=== PATIENT | female | born 1995 | race Caucasian/White ===

== ENCOUNTER → 2020-07-30 14:23 | Outpatient (BNVA) | payer OTHER, SELFPAY | PROVIDERS: Visit Provider Obstetrics & Gynecology | DX: Z34.90 Encounter for supervision of normal pregnancy, unspecified, unspecified trimester (principal) | CPT/HCPCS: 80053; 80307; 84315; 85027; 86592; 86762; 86803; 86850; 86900; 87340; 87806 ==

== ENCOUNTER → 2020-08-16 13:17 | Outpatient (BNVA) | payer OTHER, SELFPAY | PROVIDERS: Visit Provider Obstetrics & Gynecology | DX: Z34.81 Encounter for supervision of other normal pregnancy, first trimester (principal) | CPT/HCPCS: 84315; 87491; 87591 ==

== ENCOUNTER 2020-09-13 10:08 | Outpatient (CLI) | payer OTHER, SELFPAY ==
--- NOTE | 2020-09-13 10:18 | USCV_ITS ---
Arely Og Age: 25 Gender: F : 1995 Exam Date: 09/13/2020 11:09 Ordering Phys: Mary Pace MD ([email or web address]) Technologist: Graciela Pitts Exam Location: [facility] [place] Indication: BUBBLE STUDY CARDIOMEGALY BP: 118 / 63 HR: 85 Rhythm: Sinus Technical Quality: Adequate MEASUREMENTS (Male / Female) Normal Values 2D ECHO LV Chamber Size 4.4 cm RV Chamber Size 2.5 cm LVOT Diameter 2.0 cm LV Ejection Fraction MOD 2C 71.2 % LV Ejection Fraction 2C AL 69.0 % LA Diameter 4.0 cm LA Width 3.2 cm LA Height 4.2 cm RA Width 3.7 cm RA Height 4.3 cm Aorta at Sinotubular Diameter 2.6 cm M-MODE LV Diastolic Diameter MM 4.6 cm 4.2 - 5.9 / 3.9 - 5.3 cm LV Systolic Diameter MM 2.8 cm LV Ejection Fraction MM Teich 70.6 % IVS Diastolic Thickness MM 1.0 cm 0.6 - 1.0 / 0.6 - 0.9 cm IVS Systolic Thickness MM 1.4 cm LVPW Diastolic Thickness MM 1.1 cm 0.6 - 1.0 / 0.6 - 0.9 cm LVPW Systolic Thickness MM 1.5 cm RV Diastolic Diameter MM 3.0 cm Aortic Annulus Diameter 3.0 cm LA Ao Ratio MM 1.4 MV E Point Septal Separation 0.6 cm DOPPLER AV Peak Velocity 117.0 cm/s LVOT Peak Velocity 78.0 cm/s AV Area Cont Eq vti 2.2 cm squared AV Area Cont Eq pk 2.1 cm squared MV Area PHT 4.3 cm squared Mitral E to A Ratio 1.3 MV E' Velocity 53.0 cm/s Mitral E to MV E' Ratio 6.0 Mitral E to LV E' Lateral Ratio 5.6 Mitral E to LV E' Septal Ratio 6.6 TR Peak Velocity 205.0 cm/s TR Peak Gradient 16.8 mmHg TR Mean Velocity 150.4 cm/s TR Mean Gradient 10.2 mmHg TR Velocity Time Integral 59.2 cm TV Peak E Velocity 75.0 cm/s Right Atrial Pressure 3.0 mmHg Pulmonary Artery Systolic Pressu 19.8 mmHg PV Peak Velocity 82.0 cm/s RV Acceleration Time 0.2 s RV Ejection Time 0.4 s RV AcT/ET 0.5 FINDINGS Left Ventricle Normal left ventricular size, systolic function and wall thickness, with no regional wall motion abnormalities. Left ventricular ejection fraction is estimated at 60 %. Normal diastolic function. Right Ventricle Normal right ventricular size and systolic function, RVSP 21 mmHg. Right Atrium Normal right atrial size. Right atrial pressure estimated at 3 mmHg. Aneurysmal interatrial septum. No evidence of intracardiac shunt by bubble study. Left Atrium Upper normal left atrial size. Mitral Valve There is bowing of bilateral mitral valve leaflets without any significant prolapse. No mitral valve stenosis. Trace mitral valve regurgitation. Aortic Valve Structurally normal trileaflet aortic valve. No aortic valve stenosis. No aortic valve regurgitation. Tricuspid Valve Structurally normal tricuspid valve. No tricuspid valve stenosis. Trace tricuspid valve regurgitation. Pulmonic Valve Structurally normal pulmonic valve. No pulmonary valve stenosis. Trace pulmonary valve regurgitation. Pericardium No pericardial effusion. Aorta Normal size aortic root and proximal ascending aorta. Normal- sized inferior vena cava. CONCLUSIONS 1. Normal left ventricular size, systolic function and wall thickness, with no regional wall motion abnormalities. Left ventricular ejection fraction is estimated at 60 %. Normal diastolic function. 2. Aneurysmal interatrial septum. No evidence of intracardiac shunt by bubble study. 3. Normal pulmonary artery pressure. 4. No significant valvular abnormality. 5. No prior similar studies to compare. Mary Pace MD (Electronically Signed) Final Date: 14 September 2020 11:24 S
== END 2020-09-13 10:09 | disposition home or self-care (01) ==
LOC: RAD 10:15
PROVIDERS: PCP Obstetrics & Gynecology; Visit Provider Internal Medicine Cardiovascular Disease
DX: I51.7 Cardiomegaly (principal); Q21.1 Atrial septal defect
CPT/HCPCS: 84315; C8929

== ENCOUNTER → 2020-10-12 14:43 | Outpatient (BNVA) | payer OTHER, SELFPAY | PROVIDERS: PCP Obstetrics & Gynecology; Visit Provider Obstetrics & Gynecology | DX: O32.1XX0 Maternal care for breech presentation, not applicable or unspecified (principal); Z3A.20 20 weeks gestation of pregnancy | CPT/HCPCS: 76805 ==

== ENCOUNTER → 2020-12-03 14:25 | Outpatient (BNVA) | payer OTHER, SELFPAY | PROVIDERS: PCP Obstetrics & Gynecology; Visit Provider Obstetrics & Gynecology | DX: Z34.82 Encounter for supervision of other normal pregnancy, second trimester (principal) | CPT/HCPCS: 82950; 84315; 85027 ==

== ENCOUNTER → 2020-12-20 14:25 | Outpatient (BNVA) | payer OTHER, SELFPAY | PROVIDERS: PCP Obstetrics & Gynecology; Visit Provider Obstetrics & Gynecology | DX: Z34.82 Encounter for supervision of other normal pregnancy, second trimester (principal); Z79.899 Other long term (current) drug therapy | CPT/HCPCS: 84315; 84443 ==

== ENCOUNTER → 2021-01-28 15:40 | Outpatient (BNVA) | payer OTHER, SELFPAY | PROVIDERS: PCP Obstetrics & Gynecology; Visit Provider Obstetrics & Gynecology | DX: O99.412 Diseases of the circulatory system complicating pregnancy, second trimester (principal); I47.2 Ventricular tachycardia; I49.9 Cardiac arrhythmia, unspecified; I25.3 Aneurysm of heart | CPT/HCPCS: 84315; 87081 ==

== ENCOUNTER 2021-02-10 18:14 | Outpatient (CLI) | payer OTHER, SELFPAY ==
[2021-02-10 18:40] VITALS: BP 129/85; PULSE 84
[2021-02-10 19:00] VITALS: BP 113/63; PULSE 75
[2021-02-10 19:14] VITALS: BP 112/65; PULSE 87; TEMP 36.2
== END 2021-02-10 19:30 | disposition home or self-care (01) ==
LOC: OPOB 18:28 → OBGYN 18:30
PROVIDERS: PCP Obstetrics & Gynecology; Visit Provider Obstetrics & Gynecology
DX: O26.899 Other specified pregnancy related conditions, unspecified trimester (principal); Z3A.00 Weeks of gestation of pregnancy not specified; R10.9 Unspecified abdominal pain
CPT/HCPCS: 59025; 99211

== ENCOUNTER 2021-02-13 01:34 | Outpatient (CLI) | payer OTHER, SELFPAY ==
[2021-02-13] VITALS (10 sets, daily range): BP systolic 125; BP diastolic 70; PULSE 78–96; RESP 17–18; TEMP 36.8; O2SAT 97–100; BMI 35.2
[2021-02-13 04:48] LABS: Nitrazine Paper, PH Negative
== END 2021-02-13 02:35 | disposition home or self-care (01) ==
LOC: OPOB 01:35 → OBGYN 01:37
PROVIDERS: PCP Obstetrics & Gynecology; Visit Provider Obstetrics & Gynecology
DX: O26.899 Other specified pregnancy related conditions, unspecified trimester (principal); Z3A.00 Weeks of gestation of pregnancy not specified; N89.8 Other specified noninflammatory disorders of vagina
CPT/HCPCS: 59025; 83986; 99211

== ENCOUNTER 2021-02-17 02:06 | Inpatient (IN) | payer OTHER, SELFPAY ==
[2021-02-17] VITALS (94 sets, daily range): BP systolic 88–144; BP diastolic 17–76; PULSE 54–100; RESP 14–20; TEMP 36.2–36.8; O2SAT 93–100; BMI 35.3
[2021-02-17 02:07] LABS: Basophils % 0.2 %; Eosinophils # 0.1 10^3/uL (0.0-0.8); Eosinophils % 0.5 %; Hematocrit 39.1 % (37.0-47.0); Hemoglobin 13.6 g/dL (11.5-15.3); Lymphocytes # 2.4 10^3/uL (0.8-4.8); Lymphocytes % 18.8 %; Mean Corpuscular HGB Conc 34.8 g/dL (30.0-36.0); Mean Corpuscular Hemoglobin 29.6 pg (28.0-34.0); Mean Corpuscular Volume 85.2 fL (81-99); Mean Platelet Volume 9.3 fL (7.4-10.4); Monocytes # 0.9 10^3/uL (0.2-0.9); Neutrophils # 9.23 10^3/uL (1.8-7.7); Neutrophils % 72.9 %; Nucleated Red Blood Cells % 0 %; Platelet Count 206 10^3/cmm (130-400); Red Blood Count 4.59 10^6/uL (4.1-5.3); Red Cell Distribution Width 13.6 % (12.1-15.1); White Blood Count 12.7 10^3/uL (4.0-10.0)
[2021-02-17] MEDS: lactated ringers 1,000 ML 999 ML IV (02:10)
--- NOTE | 2021-02-17 03:15 | P.ANESASSM_ITS ---
Pre-Anesthetic Assessment Pre-Anesthetic Assessment: Height/Weight: Height 1.68 m Weight 99.337 kg Temp Pulse Resp BP Pulse Ox 98.1 F 88 17 128/61 93 02/17/21 02:22 02/17/21 02:58 02/17/21 01:52 02/17/21 02:58 02/17/21 02:21 Preop Diagnosis: labor pains Proposed Procedure: epidural Was Beta Jaguar taken within 24 hours: Yes Social: Social History: No alcohol and No tobacco Exam: Pre-Anes Outpt Exam: alert, oriented x 3, clear to auscultation bilaterally and regular rate & rhythm Airway: Submandibular: WNL Cervical ROM: WNL MP: 2 Dentition: Full Pulmonary: Pulmonary: Asthma (inhaler as needed) CV/HEM: CV/HEM: Arrythmia (had cardiac work up with SVT noted on monitor du ring study) : : None reported Hepatic: Hepatic: None reported GI: GI: GERD Metabolic: Metabolic: None reported Musc/skel: Musc/skel: None reported Neuropsych: Neuropsych: ESPINO Anesthetic Plan: ASA status: 2 Anesthesia: Regional (specify below) Risk of > 500 ml blood loss (7ml/kg in children): No Meds/Allergies Current Medications: Current Medications Generic Name Dose Route Start Last Admin Trade Name Freq PRN Reason Stop Dose Admin Lactated Ringer's 1,000 mls @ 999 m ls/hr 02/17/21 01:50 02/17/21 02:10 Lactated Ringers IV 999 mls/hr .Q1H1M PRN Administration See label comment s PFSH Anesthesia PFSH: Medical History Asthma History of anemia NSVT (nonsustained ventricular tachycardia) Right heart enlargement (~2019) dx after delivery of her child in 2019--saw Cardio [facility] History Hx of tooth extraction 5 teeth Family History Mother Thyroid disease Social History Smoking and tobacco status: never smoked Alcohol intake: former Former alcohol use details: socially prior to Female Reproductive History: : 2 Data Anesthesia CBC & Chem 7: 02/17/21 02:00 Other Labs: Laboratory Results - last 48 hr 02/17/21 02:00 WBC 12.7 H RBC 4.59 Hgb 13.6 Hct 39.1 MCV 85.2 MCH 29.6 MCHC 34.8 RDW 13.6 Plt Count 206 MPV 9.3 Neut % (Auto) 72.9 Lymph % (Auto) 18.8 [place] % (Auto) 7.0 Eos % (Auto) 0.5 Baso % (Auto) 0.2 Neut # (Auto) 9.23 H Lymph # (Auto) 2.4 [place] # (Auto) 0.9 Eos # (Auto) 0.1 Baso # (Auto) 0.0 Nucleated RBC % (auto) 0 Nucleated RBCs # 0.0 Cardiac Studies: Echocardiogram 09/13/20 Cardiac Event Monitor 08/18/20
[2021-02-17] MEDS: dextrose 5%-lactated ringers 1,000 ML 999 ML IV (03:42)
--- NOTE | 2021-02-17 03:52 | ANES.PROC ---
Anesthesia Procedures Procedure/Date: 02/17/21 epidural Procedure Narrative: epidural complete, bolus given, epidural pump initiated with TECHNICAL SUPPORT 1 SOFTWARE ENGINEER education given, vitals taken during procedure using OBIX system and satisfactory throughout, patient admits to decrease pain, report of procedure to OB RN Epidural: Time Out Performed: Yes Consents Signed: Procedure Consent Consent: requested by attending/covering physician, from patient, risks and benefits reviewed and patient agrees to proceed Lumbar Level: L3-L4 Epidural position: sitting Epidural procedure: sterile prep of area, 1% lidocaine to numb the area (3 mL), 18 g needle, negative for paresthesia passed, neg for paresthesia, test dose given, 1.5% xylocaine 1:200k epi (5 mL), 0.2% Ropivacaine bolus ml (5 mL), placed PCEA, no systemic response, sterile dressing applied, L.U.D. no apparent complications and 0.2% Ropiavacaine @ mls/hr (13 mL/hr)
[2021-02-17] MEDS: oxytocin 30 UNIT/500 ML BAG IV (09:27)
[2021-02-17] MEDS: dextrose 5%-lactated ringers 1,000 ML 125 ML IV (09:27)
--- NOTE | 2021-02-17 12:52 | PM.PN ---
Subjective Subjective: Interval history: Mrs. Og, 1, Para 1-0-0-1 with an LMP of 05/20/2020 and an EDDIE of 02/24/2021 based on LMP and consistent with 20-week ultrasound, which places her at 39 weeks today. Came to L&D in active labor. Vitals/I&O/Wt Last Vital Signs Temp 97.9 F 02/17/21 11:49 Pulse 68 02/17/21 12:36 Resp 17 02/17/21 01:52 BP 108/58 02/17/21 12:36 Pulse Ox 100 02/17/21 03:33 02/16/21 02/17/21 02/17/21 22:59 06:59 14:59 Intake Total 1249.75 / 1249.75 790.4 / 790.4 Balance 1249.75 / 1249.75 790.4 / 790.4 Weight last 48 hrs Weight 99.337 kg Physical Exam Narrative: EXAM NARRATIVE: GA: Alert and oriented ?3. Lungs: Clear to auscultation bilaterally. Heart: Regular rhythm and rate. Abdomen: Gravid, full the height equals dates, nontender. TANK ASSEMBLER: SVE; dilation: 6 cm, effacement: 90%, station: 0, presentation: VX, membranes: _. Extremities: no edema, no cyanosis, no calves pain. heart tracing: Basal rate: 140 bpm, Variability: Moderate, Accelerations: Present, Decelerations: absent, Contraction: Every 2 minutes. Urinary Catheter Management^: Sears Latex: Cath Placed During This Visit: yes Reason for Continuing Indwelling Catheter: Required Immobilization for Trauma or Surgery or Anesthesia Urinary Catheter Date of Insertion: 02/17/21 Urinary Catheter Time of Insertion: 04:00 Data : 02/17/21 02:00 A&P Assessment and plan (1) Term : Mrs. Og EGA at term in active leabor, epifural in place. heart tracing cat 1. scalp stimulation present. Anticipate vaginal. Continue with continuous monitoring. Status: Acute (2) Maternal arrhythmia complicating in second trimester: Status: Acute Attestations Medical Necessity Statement*: My professional opinion per admitting diagnosis Coding Level of Care Code Acute Internal Communications Specialist for [facility] Fwd Diagnoses Term Z34.90 Maternal arrhythmia complicating in second trimester O99.412; I49.9
--- NOTE | 2021-02-17 14:35 | P.PCNOB_ITS ---
Delivery Note: Date of delivery: February 17, 2021 Op report anesthesia: Epidural Delivering Physician: Christiano Hays MD Estimated blood loss (mL): 300 Findings: Term female , Apgars 8 and 9, weight 3040 g Pre-Delivery Course: Mrs. Og 25 year old, 2, Para 1-0-0-1 with an LMP of 05/20/2020 and an EDDIE of 02/24/2021 based on LMP and consistent with 20- week ultrasound, which places her at 39 weeks today CC: Onset of labor at term. HPI: Received appropriate care. Daily vitamins since two months prior to conception. labs have all been normal, including negative for HIV. She was found to negative for Group B Strep from screening at 36 weeks. She has gained approximately 13 kg throughout the . She denies a history of HTN during . Glucose tolerance screening for gestational diabetes was negative. She desires permanent sterilization, but she does not have a COVID test. She will proceed with sterilization at after visit. Delivery: The patient was noted to be complete and pushing, so was placed in the dorsal lithotomy position, prepped and draped in the usual sterile fashion for a vaginal delivery. Pt. Noted to have epidural anesthesia. At 1329 the patient delivered a viable female at term weighing 3040 g with scores of 8 and 9 at one and five minutes, respectively. The vertex was delivered spontaneously over an intact perineum. The patient was asked to push and the head delivered spontaneously in the WONG position, over an intact perineum. A nuchal cord was checked and none noted. The anterior shoulder delivered easily and the posterior shoulder followed. The remainder of the infant was easily delivered and the oropharynx and nasopharynx was bulb suctioned. The was noted to have spontaneous cry and spontaneous movement of all four extremities. The cord was clamped x 2 and cut and noted to have 2 arteries and one vein. The infant was passed to the mother's abdomen where nursing personnel were in attendance. Cord blood sample was then obtained. The placenta delivered intact spontaneously and the uterus was explored. 20 units of Pitocin was placed in the IV bag to firm the uterus. Examination of the cervix and vaginal vault did not reveal any lacerations. A vaginal pack was then placed. Examination of the perineum showed no lacerations. The vaginal pack was then removed. The patient tolerated this procedure well, and recovered in L&D with her infant in their LDR room. All sponge and needle counts were correct. A&P Assessment and plan (1) Term : Status: Acute (2) Maternal arrhythmia complicating in second trimester: Status: Acute Coding Level of Care Code Acute Test Engine Operator for [place] Fwd Diagnoses Term Z34.90 Maternal arrhythmia complicating in second trimester O99.412; I49.9
[2021-02-17] MEDS: oxytocin 30 UNIT/500 ML BAG 999 UNIT IV (15:11)
[2021-02-17] MEDS: ibuprofen 800 mg tablet PO ×2 (15:12→21:15)
[2021-02-17] MEDS: lanolin oint 7 gm 1 APPLIC TOPICAL (17:58)
[2021-02-17] MEDS: docusate sodium 100 mg Capsule PO (17:59)
[2021-02-18 00:10] VITALS: BP 110/64; PULSE 63; RESP 15; TEMP 36.4
[2021-02-18 02:38] LABS: Hematocrit 34.5 % (37.0-47.0); Hemoglobin 11.4 g/dL (11.5-15.3); Mean Corpuscular Hemoglobin 29.2 pg (28.0-34.0); Mean Corpuscular Volume 88.2 fL (81-99); Mean Platelet Volume 9.6 fL (7.4-10.4); Platelet Count 172 10^3/cmm (130-400); Red Blood Count 3.91 10^6/uL (4.1-5.3); Red Cell Distribution Width 14.1 % (12.1-15.1); White Blood Count 10.4 10^3/uL (4.0-10.0)
[2021-02-18 04:28] VITALS: BP 113/71; PULSE 77; RESP 15
[2021-02-18 10:00] VITALS: BP 117/70; PULSE 72; RESP 16; TEMP 37.1; O2SAT 99
[2021-02-18] MEDS: docusate sodium 100 mg Capsule PO (10:14)
[2021-02-18] MEDS: prenatal vitamin Capsule 1 CAP PO (10:14)
[2021-02-18] MEDS: ibuprofen 800 mg tablet PO (10:14)
--- NOTE | 2021-02-18 15:23 | PM.OBGYDC ---
Discharge Providers FINANCIAL COMPLIANCE EXAMINER Date of Admission: 02/17/21 02:06 Date of Discharge: 02/18/21 Attending Provider at Admission: Christiano Hays MD Attending Provider at Discharge: Christiano Hays MD Primary Care Provider: Leo Lloyd MD Diagnoses at Discharge Discharge Diagnosis (1) Term : Status: Acute (2) Maternal arrhythmia complicating in second trimester: Status: Acute Reason for Visit Reason for Visit: contractions Hospital Course Hospital Course Mrs. Og 25 year old, 2, Para 1-0-0-1 with an LMP of 05/20/2020 and an EDDIE of 02/24/2021 based on LMP and consistent with 20-week ultrasound, which places her at 39 weeks today CC: Onset of labor at term. HPI: Received appropriate care. Daily vitamins since two months prior to conception. labs have all been normal, including negative for HIV. She was found to negative for Group B Strep from screening at 36 weeks. She has gained approximately 13 kg throughout the . She denies a history of HTN during . Glucose tolerance screening for gestational diabetes was negative. She desires permanent sterilization, but she does not have a COVID test. She will proceed with sterilization at after visit. She progressed to have a spontaneous vaginal delivery without complications. observation was uneventful. Information Peripartum Data: Infant Delivery Method: Vaginal Physical Exam Narrative: EXAM NARRATIVE: GA; alert and oriented x 3 HEENT: normal Breasts: engorged Nipples - skin intact Lungs; clear to auscultation Heart: regular rhythm, no murmurs. Abd: Appropriately tender. BS+. Uterine fundus below umbilicus. No Fundal Tenderness. Perineum: normal lochia. Extremities: no edema, no cyanosis, no tenderness. Urinary Catheter Management^: Sears Latex: Cath Placed During This Visit: yes, but has since been removed by the nurse Reason for Continuing Indwelling Catheter: Other Urinary Catheter Date of Insertion: 02/17/21 Urinary Catheter Time of Insertion: 04:00 Date Urinary Catheter Removed: 02/17/21 Time Urinary Catheter Discontinued: 14:27 Discharge Data Data Completed and Pending: Labs from last 24 hours 02/18/21 02:30 WBC 10.4 H RBC 3.91 L Hgb 11.4 L Hct 34.5 L MCV 88.2 MCH 29.2 MCHC 33.0 RDW 14.1 Plt Count 172 MPV 9.6 Vitals: Last Vital Signs Temp 97.6 F 02/18/21 00:10 Pulse 77 02/18/21 04:28 Resp 15 02/18/21 04:28 BP 113/71 02/18/21 04:28 Pulse Ox 100 02/17/21 03:33 Discharge Plan Discharge Patient Disposition: Home Condition: Stable Prescriptions: New ibuprofen 800 mg tablet 800 mg PO TID PRN (Reason: pain) Qty: 60 RF: 0 Iron (ferrous sulfate) 325 mg (65 mg iron) tablet 325 mg PO BID Qty: 60 RF: 0 acetaminophen 325 mg capsule 325 mg PO Q4H PRN (Reason: fever or pain) Qty: 60 RF: 0 Continued metoprolol succinate 50 mg tablet extended release 24 hr 50 mg PO DAILY Qty: 30 RF: 0 [id number] 1 mg Tablet 1 tab PO DAILY RF: 0 Discharge Orders: Discharge Order (Routine); Ordered 02/18/21 Ordered By: Christiano Hays Referrals: Christiano Hays MD [Physician] - 04/01/21 9:15 am (Your 6 week visit is scheduled for 04/01/2021 at 9:15 am) Discharge Diet: Usual diet Discharge Activity: Increase activity as tolerated Patient Instructions: Depression (GEN), Pre-eclampsia and Eclampsia (DC), Bleeding (DC), OB Discharge Report, OB Food/Drug Interaction Guide, Opioid Safety, OB Home Care, OB Proud Parent Packet, OB Vaginal Deliveries - [facility] Activity Restrictions/Additional Instructions: 1. Please call [facility] [place] Women s Health Care clinic on next working day to make your appointment in 6 weeks. 2. Please stay home until you come back to the clinic on first post-operative check up. 3. Please follow instructions on your medications CAREFULLY. 4. If you have abdominal incision, do not cover it unless dressing is necessary because of drainage. OK to shower, but avoid bath. Leave steri-strips until they fall off. If they are still on one week after surgery, you may remove them. 5. If you had vaginal surgery or vaginal repair, Dr. Hays may instruct you to take SITZ bath. 6. Yellow, blood tinged odorous vaginal discharge is usually normal after hysterectomy or vaginal surgeries. 7. No sexual intercourse, tampons, or douches until you are completely released from the post-operative care. 8. Avoid constipation by eating right and maybe using some Metamucil or Milk of Magnesia. 9. All prescription refills are given during the working hours. Please do no wait till it runs out. Call the clinic at [phone] before your medication runs out. The clinic will get in touch with your doctor to prescribe medications if necessary. 10. Please remain within 40 mile radius from our hospital because emergencies do happen now and then during the post-operative period. 11. If you have stairs at home, take one step at a time slowly and minimize the number of trips. It helps to stay in one floor for the next few days. No lifting except what you can lift by one hand until you are released from the post-operative care. 12. Driving is discouraged until you are well healed. It may be 3-4 weeks before you feel strong enough to drive. You should be able to turn and look through the rear window without pain and you should be able to push the brake pedal very hard without pain before you drive. No fast rules, but SAFETY should be your primary concern. DO NOT drive if you are on sedating medications such as narcotics. 13. Call the clinic (during working hours) to make urgent appointment or go to the Emergency room, if any of the following occurs: i. Vaginal bleeding becomes heavy, more than a period. ii. Incision becomes red and sore, or drains pus. iii. Your temperature is over 100.4 or you have chill. iv. IV site becomes red and swollen (a little ``knot?? is usually OK) v. Persistent nausea and vomiting vi. Persistent constipation or diarrhea vii. Rash or allergic reaction to medications. Discharge Attestations FINANCIAL COMPLIANCE EXAMINER Time Spent in Discharge Care*: greater than 30 min Coding Level of Care Code Acute Batch Unloader for [facility] Fwd Diagnoses Term Z34.90 Maternal arrhythmia complicating in second trimester O99.412; I49.9
[2021-02-18 16:15] VITALS: BP 119/74; PULSE 59; RESP 19; TEMP 36.5; O2SAT 99
[2021-02-18 16:44] VITALS: BP 119/74; PULSE 59; RESP 19; TEMP 36.5; O2SAT 99
== END 2021-02-18 16:28 | disposition home or self-care (01) | DRG 806 ==
LOC: OPOB 02:06 → OBGYN 02:06
PROVIDERS: Admitting Provider Obstetrics & Gynecology; PCP Obstetrics & Gynecology; Visit Provider Obstetrics & Gynecology
DX: O99.42 Diseases of the circulatory system complicating childbirth (principal); I47.1 Supraventricular tachycardia; Z37.0 Single live birth; I25.3 Aneurysm of heart; Z3A.39 39 weeks gestation of pregnancy
CPT/HCPCS: 36415; 51702; 59025; 59409; 85025; 85027; 86850; 86900; 98960; 99211; J2795

== ENCOUNTER → 2021-05-05 14:15 | Outpatient (BNVA) | payer OTHER, SELFPAY | PROVIDERS: PCP Obstetrics & Gynecology; Visit Provider Obstetrics & Gynecology | DX: Z30.2 Encounter for sterilization (principal); Z20.822 Contact with and (suspected) exposure to COVID-19 | CPT/HCPCS: 87635 ==

== ENCOUNTER → 2021-05-11 11:13 | Day surgery (SDC) | payer OTHER, SELFPAY ==
[2021-05-09 12:49] VITALS: BMI 33.9
[2021-05-09 13:20] LABS: Add Urine Microscopic? NO; Charge for UA Resulting for Rev
[2021-05-09 13:27] LABS: Basophils % 0.5 %; Eosinophils # 0.1 10^3/uL (0.0-0.8); Eosinophils % 1.2 %; Hematocrit 42.1 % (37.0-47.0); Lymphocytes # 1.9 10^3/uL (0.8-4.8); Mean Corpuscular HGB Conc 33.3 g/dL (30.0-36.0); Mean Corpuscular Hemoglobin 29.2 pg (28.0-34.0); Mean Corpuscular Volume 87.9 fl (81-99); Mean Platelet Volume 9.9 fL (7.4-10.4); Monocytes # 0.4 10^3/uL (0.2-0.9); Monocytes % 7.3 %; Neutrophils % 58.7 %; Nucleated Red Blood Cells % 0 %; Platelet Count 267 10^3/cmm (130-400); Red Blood Count 4.79 10^6/uL (4.1-5.3); Red Cell Distribution Width 13.7 % (12.1-15.1); White Blood Count 5.8 10^3/uL (4.0-10.0)
--- NOTE | 2021-05-09 13:40 | P.ANESASSM_ITS ---
Pre-Anesthetic Assessment Pre-Anesthetic Assessment: Height/Weight: Height 1.68 m Weight 95.254 kg Preop Diagnosis: labor pains Proposed Procedure: Operation Date: 05/11/21 13:40 Proposed Procedures p Laparoscopic bilateral Tubal Fulguration 56500 z30.2(Bilateral) - Christiano Hays MD s Salpingectomy(Not Applicable) - Christiano Hays MD Was Beta Jaguar taken within 24 hours: Yes Was Clonidine taken within 24 hours: N/A Social: Social History: No alcohol and No tobacco Exam: Pre-Anes Outpt Exam: alert, oriented x 3, clear to auscultation bilaterally and regular rate & rhythm Airway: Submandibular: WNL Cervical ROM: WNL MP: 2 Dentition: Full History/ROS: No significant history except as noted Pulmonary: Pulmonary: Asthma CV/HEM: CV/HEM: Anemia and Arrythmia Comments: atrial septal aneurysm Anesthetic Plan: ASA status: 2 Anesthesia: General Risk of > 500 ml blood loss (7ml/kg in children): No PFSH Anesthesia PFSH: Medical History Asthma History of anemia NSVT (nonsustained ventricular tachycardia) Request for sterilization Right heart enlargement (~2019) dx after delivery of her child in 2019--saw Cardio [place] Surgical History Hx of tooth extraction 5 teeth Family History Mother Thyroid disease Social History Smoking and tobacco status: never smoked Alcohol intake: former Former alcohol use details: socially prior to Data Anesthesia CBC & Chem 7: 05/09/21 13:00 05/09/21 13:00 Other Labs: Laboratory Results - last 48 hr 05/09/21 13:00 WBC 5.8 RBC 4.79 Hgb 14.0 Hct 42.1 MCV 87.9 MCH 29.2 MCHC 33.3 RDW 13.7 Plt Count 267 MPV 9.9 Neut % (Auto) 58.7 Lymph % (Auto) 32.0 [place] % (Auto) 7.3 Eos % (Auto) 1.2 Baso % (Auto) 0.5 Neut # (Auto) 3.40 Lymph # (Auto) 1.9 [place] # (Auto) 0.4 Eos # (Auto) 0.1 Baso # (Auto) 0.0 Nucleated RBC % (auto) 0 Nucleated RBCs # 0.0 Cardiac Studies: Echocardiogram 09/13/20 Cardiac Event Monitor 08/18/20
[2021-05-09 13:53] LABS: Blood Urea Nitrogen 10 mg/dL (6-20); Calcium 8.5 mg/dL (8.5-10.5); Carbon Dioxide 23 mmol/L (22-29); Chloride 103 mmol/L (98-107); Glomerular Filtration Rate 119.9 mL/min (90-130); Glucose 89 mg/dL (65-115); Osmolality Calculated 285 mOsm/kg (285-295); Sodium 138 mmol/L (136-145)
[2021-05-09 13:57] LABS: Bilirubin Urine Neg (Negative); Blood Urine Neg (Negative); Glucose Urine UA Norm (Normal); Ketones Urine Negative (Negative); Leukocyte Esterase Urine Negative (Negative); Nitrate Urine Negative (Negative); Protein Urine Neg (Negative); Urine Appearance Clear (CLEAR); Urine Color Yellow (Yellow); Urobilinogen Urine Norm (Negative); pH Urine 5 (5-7)
[2021-05-11] VITALS (11 sets, daily range): BP systolic 121–136; BP diastolic 72–114; PULSE 51–98; RESP 16–24; TEMP 36.1–36.6; O2SAT 94–100
--- NOTE | 2021-05-11 11:40 | W.PM.OPSUD ---
Surgery/Procedure H&P Update DATE OF PROCEDURE: May 11, 2021 DATE H&P PERFORMED: 05/09/21 H&P UPDATE INFORMATION: I have reviewed H&P completed within last 30 days, I have examined patient prior to procedure and No changes to prior documentation PREOP DIAGNOSIS: Desire permanent sterilization PLANNED PROCEDURE: Operation Date: 05/11/21 13:20 Proposed Procedures p Laparoscopic bilateral Tubal Fulguration 55378 z30.2(Bilateral) - Christiano Hays MD s Salpingectomy(Not Applicable) - Christiano Hays MD
[2021-05-11 11:41] LABS: OR HCG Qualitative Urine Negative (Negative)
[2021-05-11] MEDS: scopolamine 1.5 Patch 1 PATCH TRANSDERMA (11:53)
[2021-05-11] MEDS: sodium chloride 0.9% 500 ML IV (12:20)
--- NOTE | 2021-05-11 13:54 | P.ANESUD_ITS ---
Pre-Anesthetic Update Pre-Anesthetic Assessment: Date of Surgery/Procedure: 05/11/21 Preop Shelli gnosis: Desire permanent sterilization Proposed Procedure: Operation Date: 05/11/21 13:20 Proposed Procedures p Laparoscopic bilateral Tubal Fulguration 13072 z30.2(Bilateral) - Christiano Hays MD s Salpingectomy(Not Applicable) - Christiano Hays MD Any changes to Pre-Anesthetic Assessment?: No Last Intake: Intake Last Liquid Date 05/10/21 Last Liquid Time 19:30 Last Solid Date 05/10/21 Last Solid Time 19:30 Labs Last 48hrs: Laboratory Results - last 48 hr 05/09/21 05/09/21 05/09/21 13:00 13:00 13:00 Potassium 4.0 Anion Gap 16.0 Urine Color Yellow Urine Appearance Clear Urine pH 5 Ur Specific Gravit y 1.010 Urine Protein Neg Urine Glucose (UA) Norm Urine Ketones Negative Urine Blood Neg Urine Nitrate Negative Urine Bilirubin Neg Urine Urobilinogen Norm Ur Leukocyte Candace ase Negative Urine HCG, Qual Blood Type O Positive Rho(D) Type Positive Antibody Screen Negative 05/11/21 11:40 Potassium Anion Gap Urine Color Urine Appearance Urine pH Ur Specific Gravit y Urine Protein Urine Glucose (UA) Urine Ketones Urine Blood Urine Nitrate Urine Bilirubin Urine Urobilinogen Ur Leukocyte Candace ase Urine HCG, Qual Negative Blood Type Rho(D) Type Antibody Screen Vitals: Temperature 97.8 F 05/11/21 11:42 Temperature Source Temporal Artery S can 05/11/21 11:42 Pulse Rate 51 L 05/11/21 11:42 Respiratory Rate 16 05/11/21 11:42 Blood Pressure 123/76 05/11/21 11:42 Blood Pressure Anita n 91 05/11/21 11:42 Pulse Oximetry 100 05/11/21 11:42 Oxygen Delivery Me thod 05/11/21 11:42 Exam: Pre-Anes Outpt Exam: alert, oriented x 3, clear to auscultation bilaterally and regular rate & rhythm Cardiac Studies: Echocardiogram 09/13/20 Cardiac Event Monitor 08/18/20
--- NOTE | 2021-05-11 14:32 | PM.OP ---
Operative Report Date of procedure: May 11, 2021 Pre-op Diagnosis: Desire permanent sterilization Post-op diagnosis: same Post-op Findings: Normal uterus, fallopian tubes and ovaries Procedure Done: Laparoscopic bilateral salpingectomy via fulguration Specimens removed/disposition: Left and right fallopian tube Pathology: Left and right fallopian tube Surgeon: Christiano Hays MD Anesthesia: General Estimated blood loss (mL): 2 IV fluids (mL): 500 Urine output (mL): 500 Complications: None Findings: Normal uterus, fallopian tube and ovaries Condition: stable Disposition: PACU Procedure: After informed consent, the patient was taken to the operating room where general anesthesia was administered. She was placed in the dorsal lithotomy position and prepped and draped in sterile fashion. Pre-Procedure Time-Out verifying the correct patient identity, correct procedure verified with consent, correct site and side, correct patient position, availability of correct implants and any special equipment or requirements was performed and acknowledge by the OR team. The patient was examined under anesthesia and found to have a normal uterus with normal adnexa. A weighted speculum was placed in the vagina, and the anterior lip of cervix was grasped with the single toothed tenaculum. A uterine manipulator was advanced into the endocervical canal and uterus. The tenaculum was removed after uterine manipulator was secured. The speculum was removed from the vagina. An intraumbilical incision was made with a scalpel. While tenting up on the abdomen, a Verres needle was admitted into the intra-abdominal cavity. A saline drop test was performed and noted to be within normal limits. Pneumoperitoneum was attained with 4 liters of carbon dioxide. The Verres needle was removed. A 5 mm Opitc view trocar and sleeve were admitted into the abdomen and laparoscopic confirmation of location was achieved. A second incision was made 3 cm above the symphysis pubis, and a 5 mm trocar sleeves were admitted into the abdomen under direct laparoscopic visualization without complication. A survey revealed normal abdominal anatomy with the exception of string adhesion to the right lower anterior abdominal wall. A 5 mm blunt probe was advanced through the second trocar sleeve, and light manipulation of ovaries and uterus to assess the posterior aspects was performed. The pelvic survey shows normal uterus, left and right adnexa. The left ovary was noted with a follicular cyst. The string adhesion was fulgurated and transected with good hemostasis with the Voyant. The patient was placed into Trendelenburg position. The fallopian tubes were inspected bilaterally and the fimbriated ends of the fallopian tubes were visualized bilaterally. Attention was then directed to the right side. The fallopian tube and mesosalpinx were grasped and the underlying mesosalpinx was cauterized and cut using the Voyant device. Serial cauterization and cutting was used to separate the fallopian tube from the underlying mesosalpinx until it could be amputated cutting it approximated 2 cm from the cornua. Attention was then turned to the contralateral fallopian tube, which was removed in similar fashion. Both specimens were removed through the trocar and sent to pathology. The instruments were removed. The suprapubic trocar port was removed under direct visualization insuring good hemostasis. The carbon dioxide was allowed to escape from the abdomen. The intraumbilical trocar sleeve was withdrawn under visualization with laparoscope in the sleeve to insure hemostasis. The skin incisions were closed with 3-O Monocryl subcuticular stich and Dermabond. The instruments were removed from the vagina, and excellent hemostasis was noted. The patient tolerated the procedure well, and sponge, lap and needle count were correct times two. The patient was taken to the recovery room in good condition.
[2021-05-11] MEDS: midazolam 1 mg/mL INJ 2 mL IVP (14:44)
--- NOTE | 2021-05-11 15:16 | SUR.OPER ---
1434 Pt came out rapidly breathing, wheezing, trying to sit up in bed, pulse and O2 stable. Frances NASSAR and Dr. Catalan at bedside. Sudamidrex given by Dr Catalan, albuterol nebulizer and Versed ordered by Dr. Catalan and given by nurse in PACU at bedside at 1444. 1450 Pt v/s stable, pt calm and able to answer questions.
[2021-05-11] MEDS: morphine 4 mg/mL SDV 1 mL IVP (15:29)
[2021-05-11] MEDS: HYDROcodone-acetaminophen 5-325 mg Tablet 1 TAB PO (16:00)
--- NOTE | 2021-05-11 17:46 | ANE.PACU2 ---
Inpatient post-anesthesia follow up: Airway intact: Yes Vital signs: Temperature 97.7 F Pulse Rate 69 Respiratory Rate 18 Blood Pressure 124/74 Pulse Oximetry 96 Oxygen Delivery Me thod Room Air Oxygen Flow Rate 10 Fraction of Inspir ed Oxygen Hydration adequate: Yes Nausea and vomiting: No Pain level: 2 Mental status: Baseline
== END | disposition home or self-care (01) ==
PROVIDERS: Anesthesiology; PCP Obstetrics & Gynecology; Visit Provider Obstetrics & Gynecology
PROC: (CPT 58661; 2021-05-11 13:20)
DX: Z30.2 Encounter for sterilization (principal); J45.909 Unspecified asthma, uncomplicated
CPT/HCPCS: 58661; 80048; 81003; 84703; 85025; 86850; 86900; 88302; J0690; J1100; J2250; J2270; J2370; J2405; J2704; J2710; J3010; J3490; J7040; J7611